=== PATIENT | female | born 1995 | race African-American/Black ===

== ENCOUNTER 2016-12-13 03:07 | Inpatient (IN) | payer MEDICAID ==
[~2016-12-13] VITALS: Ht 165.1 cm; Wt 103.9 kg
[2016-12-13] MEDS ORDERED: PREN1TAB89 PO (03:42)
[2016-12-13] MEDS ORDERED: RINGERS SOLUTION,LACTATED 1,000 ML IV ONE (04:30)
[2016-12-13] MEDS ORDERED: NIFEdipine 10 MG CAPSULE PO ONE (04:30)
[2016-12-13] MEDS: RINGERS SOLUTION,LACTATED 1,000 ML IV SCH ×3 (05:46→23:10)
[2016-12-13 08:03] VITALS: BP 109/58
[2016-12-13] MEDS ORDERED: OXYTOCIN 30 UNITS/LACT RINGERS 500 ML IV ONE (09:23)
[2016-12-13] MEDS ORDERED: RINGERS SOLUTION,LACTATED 1,000 ML IV PRN (09:23)
[2016-12-13] MEDS ORDERED: RINGERS SOLUTION,LACTATED 1,000 ML IV SCH (09:23)
[2016-12-13] MEDS ORDERED: METOCLOPRAMIDE HCL 5 MG/ML 2 ML VIAL IVP PRN (09:30)
[2016-12-13] MEDS ORDERED: FentaNYL CITRATE-PF 100 MCG/2 ML VIAL IVP PRN (09:30)
[2016-12-13] MEDS ORDERED: CALCIUM GLUCONATE 100 MG/ML 10 ML IVP PRN (09:30)
[2016-12-13] MEDS ORDERED: CITRIC ACID/SODIUM CITRATE 30 ML SOLUTION UDCUP PO PRN (09:30)
[2016-12-13] MEDS ORDERED: MAGNESIUM SULFATE 4 GM/WATER 100 ML IV ONE (09:30)
[2016-12-13 10:12] LABS: BASOPHILS # (AUTO) 0.02 K/uL (0.00-0.20); BASOPHILS % (AUTO) 0.3 % (0.0-2.0); EOSINOPHILS # (AUTO) 0.12 K/uL (0.00-0.70); EOSINOPHILS % (AUTO) 1.58 % (1.0-6.0); HEMATOCRIT 33.4 % (36-46); LYMPHOCYTES # (AUTO) 1.6 K/uL (1.0-4.8); LYMPHOCYTES % (AUTO) 21.9 % (22.0-44.0); MEAN CORPUSCULAR HEMOGLOBIN 29.8 pg (26.0-34.0); MEAN CORPUSCULAR VOLUME 90 fL (80-100); MONOCYTES # (AUTO) 0.6 K/uL (0.1-1.0); MONOCYTES % (AUTO) 7.6 % (2.0-9.0); NEUTROPHILS % (AUTO) 68.7 % (40.0-70.0); RED CELL DISTRIBUTION WIDTH 12.8 % (11.5-14.5); WHITE BLOOD COUNT (AUTO) 7.3 K/uL (4.5-11.0)
[2016-12-13] MEDS: MAGNESIUM SULFATE 500 ML IV SCH ×2 (12:41→23:10)
[2016-12-13] MEDS: BETAMETHASONE SOLUSPAN 6 MG/ML 5 ML VIAL IM SCH (12:55)
[2016-12-13] MEDS ORDERED: OXYGEN THERAPY IH SCH (20:00)
[2016-12-14] MEDS: BETAMETHASONE SOLUSPAN 6 MG/ML 5 ML VIAL IM SCH (13:04)
== END 2016-12-14 14:15 | disposition home or self-care (01) | DRG 563 ==
LOC: 4S 03:07 → OBSVTOIN 03:07
PROVIDERS: ADMIT Obstetrics & Gynecology; ATTEND Obstetrics & Gynecology
PROC: 4A1HXCZ Monitoring of Products of Conception, Cardiac Rate, External Approach (ICD-10-PCS; principal; 2016-12-13)
DX: O60.03 Preterm labor without delivery, third trimester (principal); E66.9 Obesity, unspecified; O99.213 Obesity complicating pregnancy, third trimester; Z68.38 Body mass index [BMI] 38.0-38.9, adult; Z3A.34 34 weeks gestation of pregnancy; Z79.899 Other long term (current) drug therapy
CPT/HCPCS: 59025; 76811; 83735; 86850; 86900; 86901; 96360; 96361; J0702; J3475; J7120

== ENCOUNTER 2016-12-18 03:34 | Observation (INO) | payer MEDICAID ==
[~2016-12-18 03:34] MED LIST: PREN1TAB89 PO
[2016-12-18 05:33] VITALS: BP 120/75
[2016-12-18 06:10] LABS: APPEARANCE,URINE CLOUDY (CLEAR); GLUCOSE, URINE (UA) NEGATIVE (NEGATIVE); KETONES,URINE NEGATIVE (NEGATIVE); LEUKOCYTE ESTERASE ,URINE SMALL (NEGATIVE); OCCULT BLOOD,URINE TRACE (NEGATIVE); PH,URINE 6.5 (5.0-8.0); PROTEIN,URINE NEGATIVE (NEGATIVE)
[2016-12-18 06:11] LABS: ADD UA MICROSCOPIC YES
[2016-12-18 06:21] LABS: SQUAMOUS EPITHELIAL CELL,UR Few /LPF (None Seen)
== END 2016-12-18 06:52 | disposition home or self-care (01) ==
LOC: 4S 03:34
PROVIDERS: ADMIT Obstetrics & Gynecology; ATTEND Obstetrics & Gynecology
DX: O62.9 Abnormality of forces of labor, unspecified (principal); O26.893 Other specified pregnancy related conditions, third trimester; M54.9 Dorsalgia, unspecified; Z3A.34 34 weeks gestation of pregnancy
CPT/HCPCS: 59025; 81001; G0378

== ENCOUNTER 2017-01-15 08:55 | Observation (INO) | payer MEDICAID ==
[~2017-01-15] VITALS: Ht 167.6 cm; Wt 107.0 kg
[2017-01-26 10:32] VITALS: BP 122/76
== END 2017-01-26 12:13 | disposition home or self-care (01) ==
LOC: 4S 01-26 09:25
PROVIDERS: ADMIT Obstetrics & Gynecology; ATTEND Obstetrics & Gynecology
DX: O62.9 Abnormality of forces of labor, unspecified (principal); O48.0 Post-term pregnancy; O26.893 Other specified pregnancy related conditions, third trimester; R10.30 Lower abdominal pain, unspecified; M54.5 Low back pain; Z3A.40 40 weeks gestation of pregnancy
CPT/HCPCS: 59025

== ENCOUNTER 2017-01-26 23:07 | Inpatient (IN) | payer OTHER, MEDICAID ==
[~2017-01-26] VITALS: Ht 167.6 cm; Wt 107.0 kg
[2017-01-26 23:52] VITALS: BP 132/81
[2017-01-27] MEDS ORDERED: OXYTOCIN 30 UNITS/LACT RINGERS 500 ML IV ONE (00:03)
[2017-01-27] MEDS ORDERED: RINGERS SOLUTION,LACTATED 1,000 ML IV PRN (00:03)
[2017-01-27] MEDS ORDERED: AMPICILLIN SODIUM 2 GM/NS 100 ML IV ONE (00:15)
[2017-01-27] MEDS ORDERED: FentaNYL CITRATE-PF 100 MCG/2 ML VIAL IVP PRN (00:15)
[2017-01-27] MEDS ORDERED: METOCLOPRAMIDE HCL 5 MG/ML 2 ML VIAL IVP PRN (00:15)
[2017-01-27] MEDS ORDERED: INFLUENZA VIRUS VACCINE QVS 2017-18 (3YR+)/PF 60 MCG/0.5 ML SYRINGE IM ONE (00:15)
[2017-01-27] MEDS ORDERED: CITRIC ACID/SODIUM CITRATE 30 ML SOLUTION UDCUP PO PRN (00:15)
[2017-01-27] MEDS: RINGERS SOLUTION,LACTATED 1,000 ML IV SCH ×2 (00:24→03:37)
[2017-01-27 01:00] LABS: BASOPHILS # (AUTO) 0.01 K/uL (0.00-0.20); BASOPHILS % (AUTO) 0.1 % (0.0-2.0); EOSINOPHILS % (AUTO) 0 % (1.0-6.0); HEMATOCRIT 34.7 % (36-46); HEMOGLOBIN 11.7 g/dL (12.0-16.0); LYMPHOCYTES # (AUTO) 1.2 K/uL (1.0-4.8); LYMPHOCYTES % (AUTO) 10.7 % (22.0-44.0); MEAN CORPUSCULAR HEMOGLOBIN 29.8 pg (26.0-34.0); MEAN CORPUSCULAR HGB CONC 33.6 G/dL (31.0-37.0); MEAN CORPUSCULAR VOLUME 89 fL (80-100); MONOCYTES # (AUTO) 0.3 K/uL (0.1-1.0); MONOCYTES % (AUTO) 2.3 % (2.0-9.0); NEUTROPHILS # (AUTO) 10.1 K/uL (1.8-7.7); RED BLOOD CELL COUNT(AUTO) 3.91 MIL/uL (4.00-5.20); RED CELL DISTRIBUTION WIDTH 14.2 % (11.5-14.5); WHITE BLOOD COUNT (AUTO) 11.6 K/uL (4.5-11.0)
[2017-01-27] MEDS ORDERED: FentaNYL/BUPIV 0.125%/NS/PF 200 ML ED ONE (01:12)
[2017-01-27] MEDS ORDERED: BUPIVACAINE HCL/PF 0.25% 30 ML VIAL ONE (01:13)
[2017-01-27] MEDS ORDERED: FentaNYL/BUPIV 0.125%/NS/PF 200 ML ED PRN (01:59)
[2017-01-27] MEDS ORDERED: ONDANSETRON HCL 4 MG/2 ML VIAL IVP PRN (02:00)
[2017-01-27] MEDS ORDERED: DiphenhydrAMINE HCL 50 MG/ML VIAL IVP PRN (02:00)
[2017-01-27] MEDS ORDERED: AMPICILLIN SODIUM 1 GM/NS 50 ML IV SCH (04:15)
[2017-01-27] MEDS ORDERED: OXYGEN THERAPY IH SCH (08:00)
[2017-01-27] MEDS ORDERED: OXYTOCIN 20 UNITS/LACT RINGERS 1,000 ML IV SCH (08:25)
[2017-01-27] MEDS ORDERED: OxyCODONE HCL/ACETAMINOPHEN 5-325 MG TABLET PO PRN ×2 (08:30)
[2017-01-27] MEDS ORDERED: GLYCERIN/WITCH HAZEL LEAF 40 PADS JAR TP PRN (08:30)
[2017-01-27] MEDS ORDERED: SENNA/DOCUSATE SODIUM 187-50 MG TABLET PO PRN (08:30)
[2017-01-27] MEDS ORDERED: MEASLES/MUMPS/RUBELLA VACCINE, LIVE 0.5 ML/VIAL SQ ONE (08:30)
[2017-01-27] MEDS ORDERED: BENZOCAINE 20%/MENTHOL 56 GM SPRAY CANISTER TP PRN (08:30)
[2017-01-27] MEDS: IBUPROFEN 800 MG TABLET PO PRN (13:05)
[2017-01-27] MEDS: MAGNESIUM HYDROXIDE SUSPENSION 30 ML UDCUP PO PRN (20:48)
[2017-01-28] MEDS ORDERED: -PHARMACY VACCINE NOTE- MISC ONE ×2 (05:30)
[2017-01-28] MEDS ORDERED: PNEUMOCOCCAL VACCINE POLYVALENT 0.5 ML VIAL [PPSV23] IM ONE (05:30)
[2017-01-28 05:44] LABS: BASOPHILS % (AUTO) 0.3 % (0.0-2.0); EOSINOPHILS % (AUTO) 0.8 % (1.0-6.0); HEMATOCRIT 29.6 % (36-46); LYMPHOCYTES # (AUTO) 2.6 K/uL (1.0-4.8); LYMPHOCYTES % (AUTO) 21.3 % (22.0-44.0); MEAN CORPUSCULAR HEMOGLOBIN 30.2 pg (26.0-34.0); MEAN CORPUSCULAR HGB CONC 33.8 G/dL (31.0-37.0); MEAN CORPUSCULAR VOLUME 89 fL (80-100); MONOCYTES # (AUTO) 0.9 K/uL (0.1-1.0); MONOCYTES % (AUTO) 7.8 % (2.0-9.0); NEUTROPHILS # (AUTO) 8.5 K/uL (1.8-7.7); NEUTROPHILS % (AUTO) 69.8 % (40.0-70.0); RED BLOOD CELL COUNT(AUTO) 3.32 MIL/uL (4.00-5.20); RED CELL DISTRIBUTION WIDTH 14.5 % (11.5-14.5); WHITE BLOOD COUNT (AUTO) 12.2 K/uL (4.5-11.0)
[2017-01-28] MEDS: IBUPROFEN 800 MG TABLET PO PRN (08:49)
[2017-01-28] MEDS: MAGNESIUM HYDROXIDE SUSPENSION 30 ML UDCUP PO PRN (10:01)
[2017-01-28] MEDS ORDERED: IBUP-2070 PO (14:53)
[2017-01-28] MEDS ORDERED: IBUP-1506 PO (14:53)
== END 2017-01-28 17:20 | disposition home or self-care (01) | DRG 775 ==
LOC: 4S 23:07 → OBSVTOIN 23:07
PROVIDERS: ADMIT Obstetrics & Gynecology; ATTEND Obstetrics & Gynecology
PROC: 10D07Z6 Extraction of Products of Conception, Vacuum, Via Natural or Artificial Opening (ICD-10-PCS; principal; 2017-01-27)
PROC: 3E0R3BZ Introduction of Anesthetic Agent into Spinal Canal, Percutaneous Approach (ICD-10-PCS; 2017-01-27)
PROC: 00HU33Z Insertion of Infusion Device into Spinal Canal, Percutaneous Approach (ICD-10-PCS; 2017-01-27)
DX: O77.0 Labor and delivery complicated by meconium in amniotic fluid (principal); Z37.0 Single live birth; Z3A.40 40 weeks gestation of pregnancy
CPT/HCPCS: 86850; 86900; 86901; 89060; 90471; J0290; J2590; J3490; J7120

== ENCOUNTER 2018-11-20 07:53 | Inpatient (IN) | payer OTHER, MEDICAID ==
[~2018-11-20] VITALS: Ht 167.6 cm; Wt 114.3 kg
[~2018-11-20 07:53] MED LIST changes: +IBUP-2070 PO
[2018-11-20] MEDS ORDERED: OXYTOCIN 20 UNITS/LACT RINGERS 1,000 ML IV ONE (08:04)
[2018-11-20] MEDS ORDERED: RINGERS SOLUTION,LACTATED 1,000 ML IV PRN (08:04)
[2018-11-20] MEDS ORDERED: FentaNYL CITRATE-PF 100 MCG/2 ML VIAL IVP PRN (08:15)
[2018-11-20] MEDS ORDERED: METHYLERGONOVINE MALEATE 0.2 MG/ML VIAL IM PRN (08:15)
[2018-11-20] MEDS ORDERED: CITRIC ACID/SODIUM CITRATE 30 ML SOLUTION UDCUP PO PRN (08:15)
[2018-11-20] MEDS ORDERED: METOCLOPRAMIDE HCL 5 MG/ML 2 ML VIAL IVP PRN (08:15)
[2018-11-20] MEDS: OXYGEN THERAPY IH SCH ×2 (08:15→20:00)
[2018-11-20 08:23] VITALS: BP 115/71
[2018-11-20] MEDS ORDERED: CHOL100018 PO (08:26)
[2018-11-20] MEDS ORDERED: FERR-89 PO (08:26)
[2018-11-20 08:45] LABS: BASOPHILS % (AUTO) 0.5 % (0.0-2.0); EOSINOPHILS % (AUTO) 1.8 % (1.0-6.0); HEMATOCRIT 32.9 % (36-46); HEMOGLOBIN 10.8 g/dL (12.0-16.0); LYMPHOCYTES # (AUTO) 1.8 K/uL (1.0-4.8); LYMPHOCYTES % (AUTO) 28.7 % (22.0-44.0); MEAN CORPUSCULAR HEMOGLOBIN 28.2 pg (26.0-34.0); MEAN CORPUSCULAR HGB CONC 32.9 G/dL (31.0-37.0); MEAN CORPUSCULAR VOLUME 86 fL (80-100); MONOCYTES # (AUTO) 0.6 K/uL (0.1-1.0); MONOCYTES % (AUTO) 9.4 % (2.0-9.0); NEUTROPHILS # (AUTO) 3.8 K/uL (1.8-7.7); NEUTROPHILS % (AUTO) 59.6 % (40.0-70.0); PLATELET COUNT (AUTO) 234 K/uL (150-450); RED BLOOD CELL COUNT(AUTO) 3.84 MIL/uL (4.00-5.20); RED CELL DISTRIBUTION WIDTH 14.1 % (11.5-14.5)
[2018-11-20] MEDS ORDERED: MISOPROSTOL 25 MCG TABLET PO ONE (10:15)
[2018-11-20] MEDS ORDERED: AMPICILLIN SODIUM 2 GM/NS 100 ML IV ONE (10:15)
[2018-11-20] MEDS: RINGERS SOLUTION,LACTATED 1,000 ML IV SCH ×2 (10:24→15:10)
[2018-11-20] MEDS ORDERED: OXYTOCIN 30 UNITS/LACT RINGERS 500 ML IV PRN (14:15)
[2018-11-20] MEDS: AMPICILLIN SODIUM 1 GM/NS 50 ML IV SCH ×2 (14:26→18:24)
[2018-11-20] MEDS ORDERED: MINERAL OIL 30 ML UDCUP VG ONE (15:30)
[2018-11-20] MEDS ORDERED: ROPIVACAINE HCL/PF 0.2% 100 ML ED ONE (15:34)
[2018-11-20] MEDS ORDERED: LIDOCAINE/PF 2% 5 ML VIAL ONE (15:34)
[2018-11-20] MEDS ORDERED: ONDANSETRON HCL 4 MG/2 ML VIAL IVP PRN (16:00)
[2018-11-20] MEDS ORDERED: DiphenhydrAMINE HCL 50 MG/ML VIAL IVP PRN (16:00)
[2018-11-20] MEDS ORDERED: ROPIVACAINE HCL/PF 0.2% 100 ML ED PRN (16:00)
[2018-11-20] MEDS ORDERED: NALBUPHINE HCL 10 MG/ML VIAL IVP PRN (16:00)
[2018-11-20] MEDS ORDERED: RINGERS SOLUTION,LACTATED 1,000 ML IV ONE (23:10)
[2018-11-20] MEDS ORDERED: LANOLIN 7 GM OINTMENT TP PRN (23:15)
[2018-11-20] MEDS ORDERED: GLYCERIN/WITCH HAZEL LEAF 40 PADS JAR TP PRN (23:15)
[2018-11-20] MEDS ORDERED: OxyCODONE HCL/ACETAMINOPHEN 5-325 MG TABLET PO PRN ×2 (23:15)
[2018-11-20] MEDS ORDERED: BENZOCAINE 20%/MENTHOL 56 GM SPRAY CANISTER TP PRN (23:15)
[2018-11-20] MEDS: IBUPROFEN 600 MG TABLET PO PRN (23:34)
[2018-11-21] MEDS: OXYGEN THERAPY IH SCH ×2 (08:00→20:00)
[2018-11-21] MEDS: MAGNESIUM HYDROXIDE SUSPENSION 30 ML UDCUP PO SCH (09:00)
[2018-11-21] MEDS: IBUPROFEN 600 MG TABLET PO PRN (19:34)
[2018-11-22] MEDS: MAGNESIUM HYDROXIDE SUSPENSION 30 ML UDCUP PO SCH (00:01)
[2018-11-22] MEDS ORDERED: IBUP-2071 PO (08:48)
[2018-11-22] MEDS ORDERED: DSS100 PO ×2 (08:49)
[2018-11-22] MEDS ORDERED: FERR-89 PO (08:50)
== END 2018-11-22 10:20 | disposition home or self-care (01) | DRG 807 ==
LOC: 4S 07:53 → OBSVTOIN 07:53
PROVIDERS: ADMIT Obstetrics & Gynecology; ATTEND Obstetrics & Gynecology
PROC: 10E0XZZ Delivery of Products of Conception, External Approach (ICD-10-PCS; principal; 2018-11-20)
PROC: 3E0R3BZ Introduction of Anesthetic Agent into Spinal Canal, Percutaneous Approach (ICD-10-PCS; 2018-11-20)
PROC: 00HU33Z Insertion of Infusion Device into Spinal Canal, Percutaneous Approach (ICD-10-PCS; 2018-11-20)
PROC: 0HQ9XZZ Repair Perineum Skin, External Approach (ICD-10-PCS; 2018-11-20)
DX: O99.824 Streptococcus B carrier state complicating childbirth (principal); Z37.0 Single live birth; Z3A.39 39 weeks gestation of pregnancy; O70.0 First degree perineal laceration during delivery
CPT/HCPCS: 86850; 86900; 86901; J0290; J2590; J2795; J3490; J7120